=== PATIENT | male | born 1965 | race Caucasian/White ===

== ENCOUNTER → 2020-04-18 | Outpatient (CLI) | payer OTHER ==
--- NOTE | 2020-04-18 09:54 | CT ---
EXAM DESCRIPTION: Lumbar Spine CLINICAL HISTORY: 54 years, Male, ACUTE LOW BACK PAIN COMPARISON: None TECHNIQUE: CT of the lumbar spine was performed without IV contrast. This exam was performed according to our departmental dose-optimization program, which includes automated exposure control, adjustment of the mA and/or kV according to patient size and/or use of iterative reconstruction technique. FINDINGS: Transitional anatomy at the lumbosacral junction with sacralization of the L5 segment and a hypoplastic disc at the L5-S1 level. The purposes of this exam, the designated L5-S1 disc is seen on series 5 image 75. With this in mind, bilateral L4-5 pars defects are noted with grade 1 anterolisthesis, degenerative disc disease and discogenic endplate changes at the same level. Bilateral L4-5 facet joint degeneration all resulting in advanced bilateral neuroforaminal and moderate canal stenosis. No additional disc space narrowing, facet joint degeneration or stenosis. The sacrum and sacroiliac joints are unremarkable. The paraspinal and visualized retroperitoneal soft tissues are unremarkable for noncontrast technique. IMPRESSION: Transitional anatomy at the lumbosacral junction, please see body of the report for detailed description of nomenclature used in this exam. Bilateral L4-5 pars defects with grade 1 anterolisthesis, degenerative disc and facet joint disease at the same level resulting in central canal and neural foraminal stenosis as detailed above. Electronically signed by: Baljinder Go MD 04/18/2020 9:52 AM CDT
== END ==
LOC: CT 09:11
PROVIDERS: ATTEND Nurse Practitioner Family
DX: M53.87 Other specified dorsopathies, lumbosacral region (principal); M43.06 Spondylolysis, lumbar region; M51.36 Other intervertebral disc degeneration, lumbar region; M48.061 Spinal stenosis, lumbar region without neurogenic claudication